=== PATIENT | female | born 1980 | race American Indian/Alaskan Native ===

== ENCOUNTER 2022-12-27 11:18 | Emergency (ER) | payer MEDICAID ==
[2022-12-27] MEDS ORDERED: Sodium Chloride 0.9% 10 ML Syringe FLUSH PRN (11:42)
[2022-12-27 12:59] LABS: PTT,PARTIAL THROMBOPLSTIN TIME 25.7 SEC (22.0-34.0)
[2022-12-27 13:01] LABS: ANION GAP 11.8 mEq/L (7-13); CHLORIDE,CL 100 mmol/L (98-107); ESTIMATED GFR 100 mL/min (>=60); SODIUM,NA 137 mmol/L (136-145)
[2022-12-27] MEDS ORDERED: Dexamethasone 4 MG/ML SDV IVPUSH ONE (14:08)
[2022-12-27] MEDS ORDERED: Mupirocin Oint 22 GM Tube TOP ONE (14:13)
[2022-12-27 14:46] VITALS: BP 107/65; PULSE 78
== END 2022-12-27 14:42 | disposition home or self-care (01) ==
LOC: DL.ED 11:18
DX: L03.116 Cellulitis of left lower limb (principal); Z88.2 Allergy status to sulfonamides; Z72.0 Tobacco use
CPT/HCPCS: 36415; 73562-RT; 73590-RT; 73630-RT; 80053; 83605; 84145; 84550; 85025; 85379; 85610; 85651; 85730; 86140; 87040; 93971; 96374; 99284; 99284-25; A9270-GY; J1100; J3490

== ENCOUNTER 2023-02-16 11:29 | Emergency (ER) | payer OTHER, MEDICAID ==
[2023-02-16 11:37] VITALS: BP 124/75; PULSE 88
[2023-02-16] MEDS ORDERED: Penicillin G Benzathine/Procaine 600-600 1.2 Millunits/2 ML Syringe IM ONE (12:06)
[2023-02-16] MEDS ORDERED: Ondansetron 4 MG Tab.DIS PO ONE (12:08)
== END 2023-02-16 12:28 | disposition other institution (70) ==
LOC: DL.ED 11:29
DX: J02.0 Streptococcal pharyngitis (principal); R11.2 Nausea with vomiting, unspecified; J45.909 Unspecified asthma, uncomplicated; Z88.2 Allergy status to sulfonamides; Z86.16 Personal history of COVID-19; Z72.0 Tobacco use
CPT/HCPCS: 96372; 99283; A9270; J0558